=== PATIENT | female | born 1940 | race Caucasian/White ===

== ENCOUNTER → 2017-05-03 10:30 | Day surgery (SDC) | payer MEDICARE ==
--- NOTE | 2017-02-26 16:16 | HP ---
HISTORY AND PHYSICAL: DATE OF ADMISSION/SURGERY: 03/13/17 DATE OF OFFICE VISIT: 02/26/17 SURGEON: Kailey Elizondo MD * (DICTATED BY JORGE DE SANTIAGO) PROCEDURE: Left knee arthroscopy with partial medial meniscectomy. CHIEF COMPLAINT: Left knee pain. HISTORY OF PRESENT ILLNESS: Ms. Trivedi is a 77-year-old female with complaints of medial left knee pain and MRI shows a medial meniscus tear. She has elected to proceed with left knee arthroscopy with partial medial meniscectomy. The surgery is scheduled for 03/13/[address] Elizondo. PAST MEDICAL HISTORY: Anxiety, high cholesterol, history of hepatitis A. PAST SURGICAL HISTORY: Denies. CURRENT MEDICATIONS: 1. Atorvastatin calcium 10 mg daily. 2. Buspirone 5 mg twice daily. 3. Lorazepam 1 mg. 4. Sertraline 50 mg every day. 5. Vitamin D 2000 units daily. 6. Aspirin 81 mg daily. ALLERGIES: None. FAMILY HISTORY: Heart disease, diabetes, rheumatoid arthritis, hypertension, breast and bone cancer. SOCIAL HISTORY: She is a 77-year-old female. She lives with her . She does not smoke or use drugs. She uses occasional alcohol. REVIEW OF SYSTEMS: A complete 14-point review of systems was reviewed with the patient, was all negative or noncontributory. PHYSICAL EXAMINATION GENERAL: She is a well developed, well nourished, in no acute distress. She is alert and oriented x3, pleasant mood, and appropriate affect. VITAL SIGNS: She stands 5 feet 4 inches tall, weighs 180 pounds. Her blood pressure 128/68, her heart rate is 86. HEENT: Normocephalic, atraumatic. NECK: Supple. PULMONARY: Lungs are clear to auscultation bilaterally. CARDIO: Regular rate and rhythm. Strong S1 and S2. ABDOMEN: Soft, nontender, and nondistended. MUSCULOSKELETAL: Left lower extremity: The skin is intact. There are no open wounds or abrasions. She has some tenderness over the medial joint line. Positive Apley's. Positive Jean Claude's. No varus or valgus instability. Negative Marisol's. Overall, neurovascularly intact. NEUROLOGIC: Cranial nerves II through XII are intact. DIAGNOSTIC STUDIES: An MRI was reviewed from an outside facility, completed , which shows a medial meniscus tear, which appears to be a radial type. ASSESSMENT AND PLAN: Ms. Trivedi is a 77-year-old female with complaints of medial left knee pain secondary to a medial meniscus tear. She has failed conservative management and has elected to proceed with the left knee arthroscopy with partial medial meniscectomy, possible chondroplasty, possible synovectomy. A surgery is scheduled for 03/13/[address] Elizondo discussed the risks and benefits of the surgery at today's visit and all of her questions were answered. She will follow with Dr. Elizondo in 10 to 14 days after the surgery. JORGE DE SANTIAGO [id number]/[facility] #: [id number] MTDD
--- NOTE | 2017-04-23 12:59 | HP ---
HISTORY AND PHYSICAL: DATE OF OFFICE VISIT: 04/18/17. DATE OF SURGERY: 05/03/17. SURGEON: Kailey Elizondo MD * (DICTATED BY JORGE DE SANTIAGO) PROCEDURE: Left knee arthroscopy, partial medial meniscectomy, possible chondroplasty and possible synovectomy. CHIEF COMPLAINT: Left knee pain. HISTORY OF PRESENT ILLNESS: Ms. Trivedi is a 77-year-old female with complaints of left knee pain which is unrelieved with conservative treatment. An MRI shows a medial meniscus tear. She has elected to proceed with surgery. PAST MEDICAL HISTORY: High cholesterol and anxiety. PAST SURGICAL HISTORY: Denies. CURRENT MEDICATIONS: 1. Atorvastatin 10 mg daily. 2. Buspirone 5 mg twice daily. 3. Lorazepam 15 mg daily as needed. 4. Sertraline 50 mg daily. 5. Vitamin D. 6. Aspirin. ALLERGIES: None. FAMILY HISTORY: Cancer, heart disease. SOCIAL HISTORY: She is a 77-year-old female. She lives with her . She does not smoke or use drugs. She uses occasional alcohol. REVIEW OF SYSTEMS: A complete 14-point review of systems was reviewed with the patient, was all negative and noncontributory. PHYSICAL EXAMINATION GENERAL: She is a well-developed and well-nourished, in no acute distress. VITAL SIGNS: She stands 5 feet 4 inches tall, weighs 176 pounds. Her blood pressure is 128/64., heart rate 80. HEENT: Normocephalic, atraumatic. NECK: Supple. No palpable lymph nodes. PULMONARY: Lungs are clear to auscultation bilaterally. CARDIOVASCULAR: Regular rate and rhythm. Strong S1, S2. ABDOMEN: Soft, nontender, nondistended. NEUROLOGIC: She is alert, oriented x3. Cranial nerves II through XII are intact. MUSCULOSKELETAL: Left lower extremity, the skin is intact. There are no open wounds or abrasions. She has a positive Apley's. No varus or valgus instability. There is mild joint effusion and tenderness over the medial joint line. Lower extremities muscle groups strengths are intact at 5/5; 2+ dorsalis pedis pulses and intact sensation. ASSESSMENT AND PLAN: Ms. Trivedi is a 77-year-old female with complaints of left knee pain secondary to medial meniscus tear. She has elected to to proceed with left knee arthroscopy, partial medial meniscectomy, possible chondroplasty , and possible synovectomy. The surgery is scheduled for 05/03/[address] Elizondo discussed the risks and benefits of surgery of the surgery on today's visit and all of her questions were answered. She will follow up with Dr. Elizondo in 2 weeks after the surgery. JORGE DE SANTIAGO [id number]/[facility] #: [id number] MTDDonna
[~2017-05-03 10:30] MED LIST: Acetaminophen TAB* 325 MG PO PRN; Buffered Lidocaine 0.9% SYRIN* 5 ML/SYR SYRINGE INTRADERM ONE; Buffered Lidocaine 0.9% SYRIN* 5 ML/SYR SYRINGE ONE; Bupivacaine 0.5% SDV PF* 30 ML VIAL ONE; Dexamethasone IV* 4 MG/ML 1 ML (4 MG) ONE; DiMENhydriNATE IV* 50 MG/ML VIAL IV PUSH PRN; DiMENhydriNATE IV* 50 MG/ML VIAL ONE; EPINEPHRINE 1 MG/ML 1 ML VIAL ONE; Famotidine IV* 10 MG/ML 2 ML (20 mg) IV ONE; Famotidine IV* 10 MG/ML 2 ML (20 mg) ONE; HYDROmorphone INJ* 1 MG/ML CARPUJECT SYRINGE IV PRN; Ketorolac INJ* 30 MG/ML 1 ML VIAL ONE; Lidocaine 2% PF * 5 ML VIAL ONE; Midazolam* 1 MG/ML 2 ML VIAL (2 MG) ONE; Ondansetron INJ* 2 MG/ML VIAL ONE; Propofol* 10 MG/ML 20 ML BTL IV PUSH ONE; ceFAZolin 2 GM PREMIX (*) 2 GM/50 ML BAG IVPB ONE; fentaNYL* 50 MCG/ML 2 ML VIAL (100 MCG VIAL) ONE; methylPREDNISolone ACETATE 80* 80 MG/ML 1 ML VIAL ONE; oxyCODONE TAB* 5 MG TAB ONE; oxyCODONE TAB* 5 MG TAB PO PRN
[2017-05-03 13:19] VITALS: BP 128/76
--- NOTE | 2017-05-04 04:06 | OP ---
OPERATIVE REPORT: DATE OF OPERATION: 05/03/17 DATE OF : 44 ATTENDING SURGEON: Kailey Elizondo MD. DIABETES MANAGER: JORGE Phan. Jefferson Romano did help throughout the procedure with preparation of the leg, wound retraction, manipul ation of the knee and wound closure. ANESTHESIOLOGIST: Dr. Vidales. ANESTHESIA: General. PRE-OP DIAGNOSIS: Left knee medial meniscal tear. POST-OP DIAGNOSES: Left knee medial meniscal tear and osteoarthritis. OPERATIVE PROCEDURE: Left knee arthroscopy with partial medial meniscectomy and patellofemoral chond roplasty. ESTIMATED BLOOD LOSS: Less than 25 mL. COMPLICATIONS: None. SPECIMENS: None. BRIEF HISTORY/INDICATIONS: Ms. Trivedi is a 77-year-old female, who had a twisting injury to her left kn ee when she fell off a chair many months ago. She had mechanical symptoms medially and eventually an MRI confirmed a medial meniscal tear. Due to failure of conservative treatment, she elected to unde rgo left knee arthroscopy with partial medial meniscectomy. Informed consent was obtained from the p atmirza. She understood the risks of surgery included but not limited to bleeding, infection, damage to nearby structures, continued pain, need for further surgery, re-tear of the meniscus, progression of arthritis and arthritis pain, stroke, heart attack, blood clot, and . She wished to proceed. INTRAOPERATIVE FINDINGS: Intraoperatively, the patient was noted to have grade 3 Outerbridge cartila ge changes in the medial and patellofemoral compartments. She had deep fissure in the cartilage and patellofemoral compartment along the medial and lateral patella with cartilage flapping. She had an anteriorly displaced complex tear involving the posterior medial meniscus. This tear involved the white-red zone. DESCRIPTION OF PROCEDURE: Ms. Trivedi was identified in the preanesthesia unit. Her left lower extremit y was marked as correct operative side. Informed consent was signed and placed in the chart. The pa tient was taken to the operating room and placed under general anesthesia. Left lower extremity was prepped and draped in the usual sterile fashion. Preop time out was made to correctly identify the p atmirza's side and site. Appropriate perioperative antibiotics were given within 1 hour of incision. A 1.5 cm anterolateral portal incision was made with a 15 blade and carried down through the capsule. Trocar was introduced into the knee. As soon as light and water sources were turned on, there was immediate visualization of the suprapatellar pouch. A tour of the knee joint was performed. Suprapa tellar pouch had no obvious abnormality. Patellofemoral compartment showed cartilage flapping and fi ssuring. These were grade 3 and 4 Outerbridge cartilage changes. Medial gutter showed no plica or l oose body. Medial compartment showed some grade 3 Outerbridge cartilage changes with fissuring of th e cartilage along the medial femoral condyle. There was a complex tear of the posterior medial menis cus, which was displaced anteriorly. This was both radial and linear in its makeup. ACL and PCL wer e intact. The knee was placed in a [id number] position. Lateral compartment cartilage had no ob vious degeneration. There was no obvious lateral meniscal tear. Lateral gutter had no obvious abnor mality. Under direct visualization, a medial portal incision was made. Probe was introduced into the joint. No additional findings were noted. Radiofrequency ablation wand and shaver were used to remove some inflammatory tissue along the anterior joint line to improve visualization. Next, the straight bite r and shaver were used to perform partial medial meniscectomy. A smooth border of the medial meniscu s was obtained in the white-red zone. Radiofrequency ablation wand was then used to further smooth t he edges of the medial meniscus. Probe was used to ensure there were no additional tears or displace d meniscal fragments. Radiofrequency ablation wand was then used to smooth any cartilage flapping al herman the patellofemoral compartment mainly involving the medial patellar facet. The knee was copiousl y irrigated with sterile saline. All instruments were removed. Incisions were closed using interrupt ed 3-0 nylon suture. Intraarticular injection of 80 mg Depo-Medrol and 6 cc of 0.25% Marcaine was pl aced in the knee joint. The patient's incisions were covered with Xeroform, 4x4s, and Webril. Kelechi w rap and cold pack were placed over this. The patient's anesthesia was reversed without difficulty. She was taken to the PACU in stable condition. Intended weightbearing will be weightbearing as carol ated. Intended DVT prophylaxis will be aspirin. She will follow up in 2 weeks' time. [id number]/[facility] #: [id number]
== END | disposition home or self-care (01) ==
LOC: OR 10:30
PROVIDERS: ATTEND Orthopaedic Surgery Adult Reconstructive Orthopaedic Surgery
DX: S83.242A Other tear of medial meniscus, current injury, left knee, initial encounter (principal); M17.12 Unilateral primary osteoarthritis, left knee; W08.XXXA Fall from other furniture, initial encounter; Y92.9 Unspecified place or not applicable; E78.00 Pure hypercholesterolemia, unspecified; F41.9 Anxiety disorder, unspecified
CPT/HCPCS: A9270-GY; J0690; J1040; J1100; J1240; J1885; J2250; J2405; J2704; J3010

== ENCOUNTER 2017-07-22 10:39 | Emergency (ER) | payer MEDICARE ==
[2017-07-22] MEDS ORDERED: Oxymetazoline 0.05% NASAL SPR* 15 ML BTL BOTH NARES ONE (11:21)
[2017-07-22 12:14] LABS: ABS Basophils 0.1 10^3/ul (0-0.2); ABS Eosinophils 0.1 10^3/ul (0-0.6); ABS Lymphocytes 1.5 10^3/ul (1.0-4.8); ABS Monocytes 0.7 10^3/ul (0-0.8); ABS Neutrophils 5.2 10^3/ul (1.5-7.7); ABS Nucleated RBC 0 10^3/ul; Eosinophil % 1.9 % (0-6); Hematocrit 40 % (35-47); Hemoglobin 13.4 g/dl (12.0-16.0); Lymphocyte % 19.9 % (25-47); Mean Corpuscular HGB Conc 33 g/dl (31-36); Mean Corpuscular Hemoglobin 30 pg (27-31); Mean Corpuscular Volume 91 fL (80-97); Mean Platelet Volume 8 um3 (7.4-10.4); Nucleated Red Blood Cells % 0; Platelet Count 241 10^3/ul (150-450); Red Blood Count 4.43 10^6/ul (4.0-5.4); Red Cell Distribution Width 15 % (10.5-15); White Blood Count 7.6 10^3/ul (3.5-10.8)
[2017-07-22 12:47] LABS: INR 0.85 (0.77-1.02)
--- NOTE | 2017-07-22 13:32 | ED ---
Throat Pain/Nasal Congestion - HPI Summary HPI Summary: Pt here w/ epistaxis in mornings weekly for past 4 weeks. Today, lasted longer than usual despite holding pressure to nose - 40 mins - going into back of throat - multiple large clots - concerned. Typically lasts 20 mins. Initial trauma w/ picking on Rt side - this has been main side of bleeding. No previous h/o epistaxis. No known bleeding or clotting d/o's and no other areas of bleeding or bruising. Takes Asa 81mg daily Snores in certain positions (back and when neck is flexed forward) Heat 70'sF in home during the day - no humidification. No use of diuretics -2 c coffee in AM and iced coffee in afternoon - History of Current Complaint Chief Complaint: EDEpistaxis Time Seen by Provider: 07/22/17 11:20 Hx Obtained From: Patient, Family/Counter Pocket Trimmer - daughter, - Allergies/Home Medications Allergies/Adverse Reactions: Allergies Allergy/AdvReac Type Severity Reaction Status Date / Time clams Allergy n/v with Uncoded 05/03/17 09:17 formerly [facility], [facility] PMH/Surg Hx/FS Hx/Imm Hx Previously Healthy: Yes Endocrine/Hematology History: Denies: Hx Anticoagulant Therapy, Hx Blood Disorders, Hx Anemia, Hx Unexplained Bleeding, Hx Coagulopothy Cardiovascular History: Denies: Hx Pacemaker/ICD, Other Cardiovascular Problems/Disorders Respiratory History: Denies: Other Respiratory Problems/Disorders GI History: Denies: Other GI Disorders Musculoskeletal History: Reports: Hx Arthritis - BACK AND NECK Denies: Hx Osteoporosis, Other Musculoskeletal History Sensory History: Reports: Hx Cataracts - yuri, Hx Contacts or Glasses - GLASSES Denies: Hx Hearing Aid Opthamlomology History: Reports: Hx Cataracts - yuri, Hx Contacts or Glasses - GLASSES Neurological History: Reports: Hx Migraine - TREATS WITH VANQUISH Denies: Other Neuro Impairments/Disorders Psychiatric History: Reports: Hx Anxiety - ON MEDICATION FOR - Surgical History Surgery Procedure, Year, and Place: COLONOSCOPY. 1ST CHILDBIRTH- ANESTHESIA Hx Anesthesia Reactions: No Infectious Disease History: No Infectious Disease History: Reports: Hx Hepatitis - "A"-20 +YEARS AGO - no residual effects Denies: Traveled Outside the [place] in Last 30 Days - Family History Known Family History: Positive: None - Social History Occupation: Retired Lives: With Family Alcohol Use: Weekly Alcohol Amount: 1-2 GLASSES OF WINE WEEKLY Hx Substance Use: No Substance Use Type: Reports: None Hx Tobacco Use: No Smoking Status (MU): Never Smoked Tobacco Review of Systems Constitutional: Negative Negative: Fever, Chills, Fatigue Eyes: Negative Negative: Drainage, Erythema Positive: Epistaxis. Negative: Dental Pain, Sore Throat, Ear Ache, Nasal Discharge Cardiovascular: Negative Respiratory: Negative Gastrointestinal: Negative Positive: no symptoms reported Musculoskeletal: Negative Negative: Bruising Neurological: Negative Negative: Headache Psychological: Normal - concerned but calm and cooperative All Other Systems Reviewed And Are Negative: Yes Physical Exam Triage Information Reviewed: Yes Vital Signs On Initial Exam: Initial Vitals Temp Pulse Resp BP Pulse Ox 98.0 F 94 18 128/69 100 07/22/17 10:40 07/22/17 10:40 07/22/17 10:40 07/22/17 10:40 07/22/17 10:40 Vital Signs Reviewed: Yes Appearance: Positive: Well-Appearing, No Pain Distress, Well-Nourished Skin: Positive: Warm, Skin Color Reflects Adequate Perfusion, Dry Head/Face: Positive: Normal Head/Face Inspection Eyes: Positive: Normal, EOMI, DANIS, Conjunctiva Clear. Negative: Conjunctiva Inflammed, Discharge ENT: Positive: Hearing grossly normal, Pharynx normal - no blood in pharynx, TMs normal - no hemotympanum. Negative: Nasal congestion, Nasal drainage - dried blood about the external Lt nare - internal mucosa pink and moist Dental: Negative: Abscess @ Neck: Positive: Supple, Nontender Respiratory/Lung Sounds: Positive: Clear to Auscultation, Breath Sounds Present. Negative: Stridor Cardiovascular: Positive: Normal Musculoskeletal: Positive: Normal, Strength/ROM Intact Neurological: Positive: Normal, Sensory/Motor Intact, Alert, Oriented to Person Place, Time, CN Intact II-III Psychiatric: Positive: Normal Procedures - Procedure Summary Procedure Summary: Visualized nasal passages w/ light and nasal speculum. Mucosa pink and moist without acute ulceration/lesion/scab observed - cannot see further into posterior aspect of nasal passages d/t limited equipment. Pt tolerated well - no afrin was necessary as pt does not have active bleeding during her time here. Diagnostics - Vital Signs Vital Signs Temp Pulse Resp BP Pulse Ox 07/22/17 10:40 98.0 F 94 18 128/69 100 - Laboratory Lab Results: Lab Results 07/22/17 07/22/17 07/22/17 Range/Units 12:00 12:00 12:00 WBC 7.6 (3.5-10.8) 10^3/ul RBC 4.43 (4.0-5.4) 10^6/ul Hgb 13.4 (12.0-16.0) g/dl Hct 40 (35-47) % MCV 91 (80-97) fL MCH 30 (27-31) pg MCHC 33 (31-36) g/dl RDW 15 (10.5-15) % Plt Count 241 (150-450) 10^3/ul MPV 8 (7.4-10.4) um3 Neut % (Auto) 67.9 (38-83) % Lymph % (Auto) 19.9 L (25-47) % Hampton % (Auto) 9.2 H (0-7) % Eos % (Auto) 1.9 (0-6) % Baso % (Auto) 1.1 (0-2) % Absolute Neuts (auto) 5.2 (1.5-7.7) 10^3/ul Absolute Lymphs (auto) 1.5 (1.0-4.8) 10^3/ul Absolute Monos (auto) 0.7 (0-0.8) 10^3/ul Absolute Eos (auto) 0.1 (0-0.6) 10^3/ul Absolute Basos (auto) 0.1 (0-0.2) 10^3/ul Absolute Nucleated RBC 0 10^3/ul Nucleated RBC % 0 INR (Anticoag Therapy) (0.77-1.02) APTT (26.0-36.3) seconds Sodium 136 (133-145) mmol/L Potassium 4.5 (3.5-5.0) mmol/L Chloride 106 (101-111) mmol/L Carbon Dioxide 26 (22-32) mmol/L Anion Gap 4 (2-11) mmol/L BUN 28 H (6-24) mg/dL Creatinine 0.72 (0.51-0.95) mg/dL Est GFR ( Amer) 101.6 (>60) Est GFR (Non-Af Amer) 79.0 (>60) BUN/Creatinine Ratio 38.9 H (8-20) Glucose 100 (70-100) mg/dL Lactic Acid 1.4 (0.5-2.0) mmol/L Calcium 9.4 (8.6-10.3) mg/dL Total Bilirubin 0.50 (0.2-1.0) mg/dL AST 14 (13-39) U/L ALT 13 (7-52) U/L Alkaline Phosphatase 74 (34-104) U/L C-Reactive Protein 5.36 H (< 5.00) mg/L Total Protein 6.8 (6.4-8.9) g/dL Albumin 3.7 (3.2-5.2) g/dL Globulin 3.1 (2-4) g/dL Albumin/Globulin Ratio 1.2 (1-3) /03/31 Range/Units 12:00 WBC (3.5-10.8) 10^3/ul RBC (4.0-5.4) 10^6/ul Hgb (12.0-16.0) g/dl Hct (35-47) % MCV (80-97) fL MCH (27-31) pg MCHC (31-36) g/dl RDW (10.5-15) % Plt Count (150-450) 10^3/ul MPV (7.4-10.4) um3 Neut % (Auto) (38-83) % Lymph % (Auto) (25-47) % Hampton % (Auto) (0-7) % Eos % (Auto) (0-6) % Baso % (Auto) (0-2) % Absolute Neuts (auto) (1.5-7.7) 10^3/ul Absolute Lymphs (auto) (1.0-4.8) 10^3/ul Absolute Monos (auto) (0-0.8) 10^3/ul Absolute Eos (auto) (0-0.6) 10^3/ul Absolute Basos (auto) (0-0.2) 10^3/ul Absolute Nucleated RBC 10^3/ul Nucleated RBC % INR (Anticoag Therapy) 0.85 (0.77-1.02) APTT 29.5 (26.0-36.3) seconds Sodium (133-145) mmol/L Potassium (3.5-5.0) mmol/L Chloride (101-111) mmol/L Carbon Dioxide (22-32) mmol/L Anion Gap (2-11) mmol/L BUN (6-24) mg/dL Creatinine (0.51-0.95) mg/dL Est GFR ( Amer) (>60) Est GFR (Non-Af Amer) (>60) BUN/Creatinine Ratio (8-20) Glucose (70-100) mg/dL Lactic Acid (0.5-2.0) mmol/L Calcium (8.6-10.3) mg/dL Total Bilirubin (0.2-1.0) mg/dL AST (13-39) U/L ALT (7-52) U/L Alkaline Phosphatase (34-104) U/L C-Reactive Protein (< 5.00) mg/L Total Protein (6.4-8.9) g/dL Albumin (3.2-5.2) g/dL Globulin (2-4) g/dL Albumin/Globulin Ratio (1-3) Result Diagrams: 07/22/17 12:00 07/22/17 12:00 Lab Statement: Any lab studies that have been ordered have been reviewed, and results considered in the medical decision making process. EENT Course/Dx - Course Course Of Treatment: Suspect posterior epistaxis - no obvious source located today. Advised on home care should epistaxis return - education about afrin as needed only - pt and family agree w/ plan and will f/u w/ ENT this week. Will return if danger s/sx present. Labs are w/o acute findings for contribution to issue today. - Diagnoses Provider Diagnoses: Epistaxis, recurrent Discharge - Discharge Plan Condition: Stable Disposition: HOME Patient Education Materials: Nosebleed (ED) Referrals: Jose Guzman MD [Primary Care Provider] - Willi York MD [Medical Doctor] - Additional Instructions: Afrin *Use if bleeding starts and is not controlled with 20minutes of steady clamping 2-3 sprays per nostril every 12 hours as needed for bloody nose Do not use for more than 3 days consecutively. If bloody nose returns and is not controlled with methods above, return to ED Otherwise, follow-up with ENT this week - call tomorrow to schedule an appointment
[2017-07-22 14:23] VITALS: BP 126/72
== END 2017-07-22 13:48 | disposition home or self-care (01) ==
LOC: ED 10:39
DX: R04.0 Epistaxis (principal)
CPT/HCPCS: 36415; 80053; 83605; 85025; 85610; 85730; 86140; 99282; A9270-GY

== ENCOUNTER 2018-07-24 07:52 | Day surgery (SDC) | payer MEDICARE ==
[~2018-07-24 07:52] MED LIST changes: -Buffered Lidocaine 0.9% SYRIN* 5 ML/SYR SYRINGE INTRADERM ONE; -Buffered Lidocaine 0.9% SYRIN* 5 ML/SYR SYRINGE ONE; +Buffered Lidocaine 1% SYRIN* 1 ML/SYRINGE INTRADERM ONE; -Bupivacaine 0.5% SDV PF* 30 ML VIAL ONE; -Dexamethasone IV* 4 MG/ML 1 ML (4 MG) ONE; -DiMENhydriNATE IV* 50 MG/ML VIAL IV PUSH PRN; -DiMENhydriNATE IV* 50 MG/ML VIAL ONE; -EPINEPHRINE 1 MG/ML 1 ML VIAL ONE; -Famotidine IV* 10 MG/ML 2 ML (20 mg) IV ONE; -Famotidine IV* 10 MG/ML 2 ML (20 mg) ONE; -HYDROmorphone INJ* 1 MG/ML CARPUJECT SYRINGE IV PRN; -Ketorolac INJ* 30 MG/ML 1 ML VIAL ONE; -Lidocaine 2% PF * 5 ML VIAL ONE; -Midazolam* 1 MG/ML 2 ML VIAL (2 MG) ONE; -Ondansetron INJ* 2 MG/ML VIAL ONE; -Propofol* 10 MG/ML 20 ML BTL IV PUSH ONE; -ceFAZolin 2 GM PREMIX (*) 2 GM/50 ML BAG IVPB ONE; -fentaNYL* 50 MCG/ML 2 ML VIAL (100 MCG VIAL) ONE; -methylPREDNISolone ACETATE 80* 80 MG/ML 1 ML VIAL ONE; -oxyCODONE TAB* 5 MG TAB ONE; -oxyCODONE TAB* 5 MG TAB PO PRN
[2018-07-24] MEDS ORDERED: Midazolam* 1 MG/ML 2 ML VIAL (2 MG) ONE ×2 (09:59→10:13)
--- NOTE | 2018-07-24 11:06 | OP ---
OPERATIVE NOTE: DATE OF OPERATION: 07/24/18 DATE OF : 44 SURGEON: Willi Sanchez MD PREOPERATIVE DIAGNOSIS: Cataract right eye. POSTOPERATIVE DIAGNOSIS: Cataract right eye. OPERATIVE PROCEDURE: Extracapsular cataract extraction with intraocular lens implant right eye. PROCEDURE: The patient was brought to the operating room after being given 1/2% Alcaine with epineph rine drops in the preoperative area. The eye was prepped and draped in the usual sterile fashion. S terile drape and eyelid speculum were placed. Again, topical 1/2% Alcaine with epinephrine was given . A paracentesis incision was made at the 9 o'clock position with the No.75 blade. Clear cornea inc ision 2.2 x 2.2-mm was created at the 12 o'clock position starting at the anterior limbus using the 2 .2-mm keratome. The anterior chamber was irrigated with 0.4 mL of 1% non-preservative intracameral l idocaine and filled with DisCoVisc. A capsulorrhexis was completed using the cystotome and the Utrat a forceps. Hydrodissection was performed with balanced salt solution. The lens nucleus was removed w ith the Phacoemulsification handpiece without incident. Cortex was removed with the irrigation-aspir ation handpiece. The capsular bag was re-inflated using DisCoVisc and an SN60WF 18.5 implant was ins erted with the shooter. The irrigation-aspiration handpiece was used to remove all residual DisCoVis c. The eye was refilled with balanced salt solution and the wound checked and found to be watertight . Topical Maxitrol drops were given. [id number]/[facility] #: [id number]
[2018-07-24 11:19] VITALS: BP 129/72
[2018-07-24] MEDS ORDERED: Lidocaine 1%* 5 ML VIAL ONE (12:18)
[2018-07-24] MEDS ORDERED: Phenylephrine 2.5% OPTH.SOL* 2 ML BTL ONE (12:18)
[2018-07-24] MEDS ORDERED: Povidone Iodine 5% OPTH* 30 ML BTL ONE (12:18)
[2018-07-24] MEDS ORDERED: Neomycin/Polymy/Dex OPTH.SUSP* MAXITROL 0.1% 5 ML ONE (12:18)
[2018-07-24] MEDS ORDERED: Lidocaine 2% EPI 1:200000 MPF*10-20 ML VIAL ONE (12:18)
[2018-07-24] MEDS ORDERED: acetaZOLAMIDE TAB* 250 MG ONE (12:18)
[2018-07-24] MEDS ORDERED: Ketorolac 0.5% OPHTH (NF) 0.5 % 5 ML BTL ONE (12:18)
[2018-07-24] MEDS ORDERED: Cyclopentolate 1% OPTH.SOL* 2 ML BTL ONE (12:18)
[2018-07-24] MEDS ORDERED: Proparacaine 0.5% OPHTH.SOL* 15 ML BTL ONE (12:18)
== END 2018-07-24 10:35 | disposition home or self-care (01) ==
LOC: OREAST 07:52
PROVIDERS: ATTEND Specialist
DX: H25.811 Combined forms of age-related cataract, right eye (principal); H43.813 Vitreous degeneration, bilateral; G43.109 Migraine with aura, not intractable, without status migrainosus; I10 Essential (primary) hypertension; E78.5 Hyperlipidemia, unspecified; M19.90 Unspecified osteoarthritis, unspecified site
CPT/HCPCS: A9270-GY; J2250; V2632

== ENCOUNTER 2018-07-31 07:20 | Day surgery (SDC) | payer MEDICARE ==
[2018-07-31] MEDS ORDERED: fentaNYL* 50 MCG/ML 2 ML VIAL (100 MCG VIAL) ONE (09:08)
[2018-07-31] MEDS ORDERED: Midazolam* 1 MG/ML 2 ML VIAL (2 MG) ONE ×2 (09:08→10:03)
[2018-07-31] MEDS ORDERED: acetaZOLAMIDE TAB* 250 MG ONE (09:26)
[2018-07-31] MEDS ORDERED: Povidone Iodine 5% OPTH* 30 ML BTL ONE (09:26)
[2018-07-31] MEDS ORDERED: Cyclopentolate 1% OPTH.SOL* 2 ML BTL ONE (09:26)
[2018-07-31] MEDS ORDERED: Ketorolac 0.5% OPHTH (NF) 0.5 % 5 ML BTL ONE (09:26)
[2018-07-31] MEDS ORDERED: Proparacaine 0.5% OPHTH.SOL* 15 ML BTL ONE (09:26)
[2018-07-31] MEDS ORDERED: Neomycin/Polymy/Dex OPTH.SUSP* MAXITROL 0.1% 5 ML ONE (09:26)
[2018-07-31] MEDS ORDERED: Phenylephrine OPHTH SOL 2.5%* 2 ML ONE (09:26)
[2018-07-31] MEDS ORDERED: Lidocaine 2% EPI 1:200000 MPF*10-20 ML VIAL ONE (09:26)
[2018-07-31] MEDS ORDERED: Lidocaine 1%* 5 ML VIAL ONE (09:26)
[2018-07-31 10:30] VITALS: BP 136/61
--- NOTE | 2018-07-31 10:41 | OP ---
OPERATIVE NOTE: DATE OF OPERATION: 07/31/18 DATE OF : 44 SURGEON: Willi Sanchez MD. PREOPERATIVE DIAGNOSIS: Cataract, left eye. POSTOPERATIVE DIAGNOSIS: Cataract, left eye. OPERATIVE PROCEDURE: Extracapsular cataract extraction with intraocular lens implant, left eye. DESCRIPTION OF PROCEDURE: The patient was brought to the operating room after being given 1/2% Alcai ne with epinephrine drops in the preoperative area. The eye was prepped and draped in the usual ster ile fashion. Sterile drape and eyelid speculum were placed. Again, topical 1/2% Alcaine with epinep hrine was given. A paracentesis incision was made at the 3 o'clock position with the No.75 blade. Cl ear cornea incision 2.2 x 2.2-mm was created at the 6 o'clock position starting at the anterior limbu s using the 2.2-mm keratome. The anterior chamber was irrigated with 0.4 mL of 1% non-preservative i ntracameral lidocaine and filled with DisCoVisc. A capsulorrhexis was completed using the cystotome and the Utrata forceps. Hydrodissection was performed with balanced salt solution. The lens nucleus was removed with the Phacoemulsification handpiece without incident. Cortex was removed with the irr igation-aspiration handpiece. The capsular bag was re-inflated using DisCoVisc and an SN60WF 18.5 im plant was inserted with the shooter. The irrigation-aspiration handpiece was used to remove all resi dual DisCoVisc. The eye was refilled with balanced salt solution and the wound checked and found to be watertight. Topical Maxitrol drops were given. [id number]/[facility] #: [id number]
== END 2018-07-31 10:38 | disposition home or self-care (01) ==
LOC: OREAST 07:20
PROVIDERS: ATTEND Specialist
DX: H25.812 Combined forms of age-related cataract, left eye (principal); H43.813 Vitreous degeneration, bilateral; G43.109 Migraine with aura, not intractable, without status migrainosus; I10 Essential (primary) hypertension; E78.5 Hyperlipidemia, unspecified; M19.90 Unspecified osteoarthritis, unspecified site; F41.9 Anxiety disorder, unspecified
CPT/HCPCS: A9270-GY; J2250; J3010; V2632

== ENCOUNTER 2018-10-03 04:43 | Emergency (ER) | payer MEDICARE ==
--- OUTSIDE RECORDS SUMMARY | 2018-10-03 04:49 | XMS REPORT | Continuity of Care Document ---
:1940 External Reference #:[id number] Author Name Danny Luz Care Team Providers Name Role Phone Jose Guzman MD Primary Care Physician Unavailable Payers Date Identification Numbers Payment Provider Subscriber Policy Number: [id number] Medicare Arabella Musa PayID: [id number] [address] [place] [address] Policy Number: [id number] [facility] Arabella Musa PayID: [id number] [address] [place] [address] Advance Directives Description No Information Available Problems Active Problems Provider Date Localized, primary osteoarthritis Kailey Elizondo M.D. Onset: 01/29/2017 Family History Date Family Member(s) Observation Comments General Diabetes General Heart Disease General Hypertension General Cancer General Rheumatoid Arthritis Father Heart Disease Mother Breast Cancer First Sister Arthritis First Sister Hypercholesterolemia Social History Type Date Description Comments Sex Unknown Lives With Spouse Occupation Retired Tobacco Use Start: Unknown Never Smoked Cigarettes Smoking Status Reviewed: 09/05/18 Never Smoked Cigarettes ETOH Use Negative For Occasionally consumes alcohol Tobacco Use Start: Unknown Patient has never smoked Exercise Type/Frequency Exercises sporadically Exercise Type/Frequency Does not exercise Allergies, Adverse Reactions, Alerts Description No Known Drug Allergies Medications Active Medications SIG Qnty Indications Ordering Date Provider Clotrimazole/Betamet apply to effected 30gm L29.2 Del Albrecht, 2018 hasone Dipropionate area of vulva (external only) 1-0.05% Cream bid until irritation resolves Clindamycin one applicator 160gram Del Albrecht, 06/13/2018 Phosphate vaginally every MD 2% Cream night at bedtime x 4 weeks Aspirin 1 by mouth every 14tabs Kailey Elizondo, 05/03/2017 325mg Tablets day for 2 weeks M.D. Atorvastatin Calcium 1 by mouth every Unknown day 10mg Tablets Buspirone HCL by mouth twice a Unknown 5mg day Tablets Lorazepam Unknown 15mg Sertraline HCL 1 by mouth every Unknown 50mg day Tablets Vitamin D 1 by mouth every Unknown 2000Unit day Capsules Biotin 1 tablet every Unknown 300mcg Tablets other day Vitamin B12 1 by mouth every Unknown 100mcg day Tablets History Medications Meloxicam take 1 tab by 14tabs M25.562 Kailey Elizondo, 05/30/2017 - 15mg mouth with food M.D. 06/14/2017 Tablets once a day Oxycodone-Acetamino 1 tabs by mouth 45tabs Kailey Elizondo, 05/03/2017 - phen every 4-6 hours M.D. 06/14/2017 5-325mg as needed for Tablets pain Aspirin 1 by mouth every Unknown - day 05/03/2017 Immunizations Description No Information Available Vital Signs Date Vital Result Comment 09/05/2018 1:53pm Height 63.5 inches 5'3.50" Weight 182.00 lb Heart Rate 95 /min BP Systolic 126 mmHg BP Diastolic 67 mmHg O2 % BldC Oximetry 97 % BMI (Body Mass Index) 31.7 kg/m2 06/13/2018 11:34am Height 63.5 inches 5'3.50" Weight 181.00 lb Heart Rate 85 /min BP Systolic 137 mmHg BP Diastolic 64 mmHg O2 % BldC Oximetry 95 % BMI (Body Mass Index) 31.6 kg/m2 05/28/2018 1:07pm Height 63.5 inches 5'3.50" Weight 183.12 lb Heart Rate 80 /min BP Systolic 117 mmHg BP Diastolic 66 mmHg O2 % BldC Oximetry 97 % BMI (Body Mass Index) 31.9 kg/m2 Last Menstrual Period [id number] 06/15/2017 10:44am Height 64.5 inches 5'4.50" Weight 168.00 lb BP Systolic 114 mmHg BP Diastolic 68 mmHg Body Temperature 97.5 F BMI (Body Mass Index) 28.4 kg/m2 05/30/2017 10:23am Height 64.5 inches 5'4.50" Weight 176.00 lb per pt Heart Rate 70 /min reg BP Systolic Sitting 130 mmHg Lue BP Diastolic Sitting 76 mmHg Lue Respiratory Rate 16 /min Pain Level 7 left knee BMI (Body Mass Index) 29.7 kg/m2 05/16/2017 12:29pm Height 64.5 inches 5'4.50" Weight 176.00 lb BP Systolic 130 mmHg BP Diastolic 76 mmHg Body Temperature 98.4 F BMI (Body Mass Index) 29.7 kg/m2 05/10/2017 1:12pm Height 64.5 inches 5'4.50" Weight 176.00 lb Heart Rate 84 /min BP Systolic Sitting 148 mmHg BP Diastolic Sitting 70 mmHg Body Temperature 98.2 F Pain Level 4 BMI (Body Mass Index) 29.7 kg/m2 04/18/2017 9:54am Height 64.5 inches 5'4.50" Weight 176.00 lb Heart Rate 80 /min BP Systolic 128 mmHg BP Diastolic 64 mmHg BMI (Body Mass Index) 29.7 kg/m2 02/26/2017 10:27am Height 64.5 inches 5'4.50" Weight 180.00 lb Heart Rate 86 /min BP Systolic 128 mmHg BP Diastolic 68 mmHg Respiratory Rate 17 /min Body Temperature 97.2 F Pain Level 7 BMI (Body Mass Index) 30.4 kg/m2 01/29/2017 2:23pm Height 64.5 inches 5'4.50" Weight 180.00 lb Heart Rate 74 /min BP Systolic 112 mmHg BP Diastolic 61 mmHg Body Temperature 98.1 F Pain Level 7 BMI (Body Mass Index) 30.4 kg/m2 Results Test Date Facility Test Result H/L Range Note Laboratory test 06/13/2018 [facility] Culture Genital & SEE RESULT 1, [address] [place] [address] [phone] Laboratory test 06/13/2018 [facility] Gardnerella/Yeast SEE RESULT 3, [address] : [place] [address] [phone] 1 [id number] 2 SEE RESULT BELOW Name: ARABELLA MUSA : [address]: Del Albrecht MD Acct: [id number] Unit: [id number] AGE: 78 Location: [facility] Re06/13/18 SEX: F Status: REG REF SPEC: [id number] LIZET: 06/13/18-[address] [facility] DR: Del Albrecht MD REQ: [id number] RECD: 06/13/18 STATUS: COMP _ SOURCE: VAGINAL SPDESC: ORDERED: Genital Culture COMMENTS: [id number] Procedure Result Reported Site Genital Culture Final 06/15/18- 1358 ML Organism 1 NORMAL PATRICIA Quantity 3+ Routine genital cultures do not include selective agar for Neisseria gonorrhoeae. Molecular testing offers better test sensitivity and therefore is the preferred test methodology for identifying this organism. * - Main Lab . END OF REPORT DEPARTMENT OF PATHOLOGY, [address] [place] [address] Jatin Khan M.D. Director [facility] # [id number] SEE RESULT BELOW Name: LENCHOCARRIEARABELLA H : [address]: Del Albrecht MD Acct: [id number] Unit: [id number] AGE: 78 Location: [facility] Re06/13/18 SEX: F Status: REG REF SPEC: [id number] LIZET: 06/13/18-[address]: Del Albrecht MD REQ: [id number] RECD: 06/13/184316 STATUS: COMP _ SOURCE: VAGINAL SPDESC: ORDERED: Keisha,Yeast DNA, Trich DNA COMMENTS: [id number] QUERIES: Would you like to order Trichomonas Vaginalis testing? Yes Procedure Result Reported Site Gardnerella/Yeast: Vaginal DNA Final 06/14/181410 ML Organism 1 POSITIVE GARDNERELLA Organism 2 Negative Kimberli The presence of G. vaginalis, although suggestive, is not diagnostic for bacterial vaginosis. Results should be interpreted in conjuction with other clinical and laboratory data available. Women with vaginal discharge should be evaluated for risk factors of cervicitis and pelvic inflammatory disease, toxic shock syndrome (S.aureus), and if present, evaluated for organisms not included in this assay such as N. gonorrhoeae, C. trachomatis, Mobiluncus, Mycoplasma and/or Prevotella. Mixed infections may occur. The performance of this test on patient specimens collected during or immediately after antimicrobial therapy is unknown. The presence or absence of Kimberli species, or G. vaginalis cannot be used as a test for therapeutic success or failure. Trichomonas: Vaginal DNA Probe Final 06/14/181410 ML Organism 1 Negative Trichomonas CONTINUED ON NEXT PAGE DEPARTMENT OF PATHOLOGY, [address] [place] [address] Jatin Khan M.D. Director [facility] # [id number] Patient: ARABELLA MUSA [id number] (Continued) Specimen: [id number] Collected: 06/13/18 Received: 06/13/18-1439 (Continued) Procedure Result Reported Site Trichomonas: Vaginal DNA Probe Final (continued) 06/14/18 141 The presence or absence of T. vaginalis cannot be used as a test for therapeutic success or failure. * ML - Main Lab . END OF REPORT DEPARTMENT OF PATHOLOGY, [address] [place] [address] Jatin Khan M.D. Director [facility] # [id number] Procedures Date Code Description Status 05/03/2017 80383 Arthroscopy,Knee,Meniscectomy Medial Or Lateral Completed 05/03/2017 74707 Arthroscopy,Knee,Meniscectomy Medial Or Lateral Completed Encounters Type Date Location Provider Dx Diagnosis Office Visit 06/13/2018 [facility] Del Albrecht MD L29.2 Pruritus vulvae 11:30a [facility] N89.8 Other specified noninflammatory disorders of vagina Office Visit 05/28/2018 1:00p [facility] Del Albrecht, N81.11 Cystocele, [facility] midline Office Visit 01/29/2017 2:00p Orthopedic Kailey Mikhail, M25.562 Pain in left Services Of M.D. knee [facility] M25.462 Effusion, left knee M17.12 Unilateral primary osteoarthritis, left knee S83.242D Oth tear of medial meniscus, current injury, left knee, subs Plan of Treatment Future Appointment(s):12/05/2018 9:30 am - Del Albrecht MD at [facility]09/05/2018 - Del Albrecht MDN81.11 Cystocele, midlineFollow up:3 months pessary vurzkfujqofS06.2 Pruritus vulvaeNew Medication:Clotrimazole/ Betamethasone Dipropionate 1-0.05 % - apply to effected area of vulva (external only) bid until irritation resolves
--- NOTE | 2018-10-03 05:12 | ED ---
Headache - HPI Summary HPI Summary: Patient is a 78 y/o F presenting to ED with complaints of MAGDALENO. She states that she is "susceptible" to HAs but claims this is the worst MAGDALENO that she has experienced. MAGDALENO onset yesterday, 10/02/18, and had been "manageable" and intermittent throughout the day. Before going to bed, the patient took Execdrin PM and managed to sleep. This morning, at 0400, patient woke with severe MAGDALENO. She took two pills of Vanquish but experienced no relief in Sx. Nausea, photophobia are endorsed. Visual changes, chest pain, SOB, recent colds, abdominal pain, cough, fever and vomiting are denied. On triage, pain is rated 10/10, nothing is noted to aggravate/alleviate Sx. Home medications and allergies are reviewed. - History Of Current Complaint Chief Complaint: EDHeadache Stated Complaint: HEADACHE PER PT Time Seen by Provider: 10/03/18 05:06 Hx Obtained From: Patient Onset/Duration: Started days ago - yesterday, Still Present, Worse Since - 0400 today Initially Headache Was: Moderate Currently Pain Is: Current Pain Scale(0-10)= - 10/10, Severe Timing: Constant, Days - onset yesterday Aggravating Factor: Position Change Allevating Factors: Nothing Associated Signs And Symptoms: Nausea, Other (Noted In Comments) - Nausea, photophobia are endorsed. Visual changes, fever, chest pain, SOB, recent colds, abdominal pain, cough and vomiting are denied - Allergies/Home Medications Allergies/Adverse Reactions: Allergies Allergy/AdvReac Type Severity Reaction Status Date / Time clams Allergy n/v with Uncoded 07/31/18 07:45 eloy PMH/Surg Hx/FS Hx/Imm Hx Endocrine/Hematology History: Denies: Hx Anticoagulant Therapy, Hx Blood Disorders, Hx Anemia, Hx Unexplained Bleeding Cardiovascular History: Denies: Hx Pacemaker/ICD, Other Cardiovascular Problems/Disorders Respiratory History: Denies: Other Respiratory Problems/Disorders GI History: Denies: Other GI Disorders Musculoskeletal History: Reports: Hx Arthritis - BACK AND NECK, Hx Bursitis - LEFT FOOT Denies: Hx Osteoporosis, Other Musculoskeletal History Sensory History: Reports: Hx Cataracts - yuri, Hx Contacts or Glasses - GLASSES Denies: Hx Hearing Aid Opthamlomology History: Reports: Hx Cataracts - yuri, Hx Contacts or Glasses - GLASSES Neurological History: Denies: Hx Migraine, Other Neuro Impairments/Disorders Psychiatric History: Reports: Hx Anxiety - ON MEDICATION FOR - Surgical History Surgery Procedure, Year, and Place: COLONOSCOPY. 1ST CHILDBIRTH- ANESTHESIA. LEFT KNEE 2018 [facility] Hx Anesthesia Reactions: No Infectious Disease History: No Infectious Disease History: Reports: Hx Hepatitis - "A"-20 +YEARS AGO - no residual effects Denies: Traveled Outside the [place] in Last 30 Days - Family History Known Family History: Positive: Cardiac Disease - Social History Alcohol Use: Occasionally Alcohol Amount: 1-2 GLASSES OF WINE WEEKLY Hx Substance Use: No Substance Use Type: Reports: None Hx Tobacco Use: No Smoking Status (MU): Never Smoked Tobacco Have You Smoked in the Last Year: No Review of Systems Constitutional: Other - NEGATIVE - RECENT COLDS Negative: Fever Eyes: Other - NEGATIVE - VISUAL CHANGES Positive: Photophobia Negative: Chest Pain Negative: Shortness Of Breath, Cough Positive: Nausea. Negative: Abdominal Pain, Vomiting Positive: Headache All Other Systems Reviewed And Are Negative: Yes Physical Exam - Summary Physical Exam Summary: Appearance: Well-appearing, Well-nourished, lying in bed comfortably Skin: Warm, dry, no obvious rash Eyes: sclera anicteric, no conjunctival pallor ENT: mucous membranes moist, pharynx appears normal Neck: Supple, nontender Respiratory: Clear to auscultation, no signs of respiratory distress Cardiovascular: Normal S1, S2. No murmurs. Normal distal pulses in tibial and radial bilaterally. Abdomen: Soft, nontender, normal active bowel sounds present Musculoskeletal: Normal, Strength/ROM Intact Neurological: A&Ox3, awake and alert, mentation is normal, speech is fluent and appropriate, no meningismus Psychiatric: affect is normal, does not appear anxious or depressed Triage Information Reviewed: Yes Vital Signs On Initial Exam: Initial Vitals Temp Pulse Resp BP Pulse Ox 96.9 F 79 20 162/100 95 10/03/18 04:44 10/03/18 04:44 10/03/18 04:44 10/03/18 04:44 10/03/18 04:44 Vital Signs Reviewed: Yes Diagnostics - Vital Signs Vital Signs Temp Pulse Resp BP Pulse Ox 10/03/18 04:44 96.9 F 79 20 162/100 95 - Laboratory Lab Statement: Any lab studies that have been ordered have been reviewed, and results considered in the medical decision making process. Re-Evaluation - Re-Evaluation First Eval Re-Evaluation Time: 06:31 Change: Improved Comment: Patient reported relief in Sx after receiving medications. Headache Course/Dx - Course Course Of Treatment: Patient is a 78 y/o F presenting to ED with complaints of MAGDALENO. She states that she is "susceptible" to HAs but claims this is the worst MAGDALENO that she has experienced. MAGDALENO onset yesterday, 10/02/18, and had been "manageable " and intermittent throughout the day. Before going to bed, the patient took Execdrin PM and managed to sleep. This morning, at 0400, patient woke with severe MAGDALENO. She took two pills of Vanquish but experienced no relief in Sx. Nausea, photophobia are endorsed. Visual changes, chest pain, SOB, recent colds , abdominal pain, cough, fever and vomiting are denied. Physical exam unremarkable, no meningismus. During ED course, patient received fluids, Compazine 10 mg IV, toradol 10 mg IV, and Benadryl 25 mg IV. Patient reported relief in Sx after receiving medications. - Diagnoses Provider Diagnoses: Headache Discharge - Sign-Out/Discharge Documenting (check all that apply): Patient Departure - discharge Patient Received Moderate/Deep Sedation with Procedure: No - Discharge Plan Condition: Good Disposition: HOME Patient Education Materials: Migraine Headache (ED) Referrals: Jose Guzman MD [Primary Care Provider] - If Needed - Billing Disposition and Condition Condition: GOOD Disposition: Home - Attestation Statements Document Initiated by Puma: Yes Documenting Scribe: SARAH BUCKNER Provider For Whom Puma is Documenting (Include Credential): TANVIR LOWE MD Scribkatt Attestation: SARAH Boss, scribed for TANVIR LOWE MD on 10/04/18 at 1925. Scribe Documentation Reviewed: Yes Provider Attestation: The documentation as recorded by the SARAH bauman accurately reflects the service I personally performed and the decisions made by me, TANVIR LOWE MD Status of Scribe Document: Viewed
[2018-10-03] MEDS ORDERED: PROCHLORPERAZINE INJ 5 MG/ML 2 ML VIAL IV ONE (05:14)
[2018-10-03] MEDS ORDERED: Ketorolac INJ* 30 MG/ML 1 ML VIAL IV PUSH ONE (05:14)
[2018-10-03] MEDS ORDERED: NS 0.9% 1000 ML** 2,000 ML IV ONE (05:14)
[2018-10-03] MEDS ORDERED: diPHENhydraMINE IV* 50 MG/ML 1 ml VIAL (BENADRYL) IV ONE (05:15)
[2018-10-03 07:12] VITALS: BP 138/66
== END 2018-10-03 07:12 | disposition home or self-care (01) ==
LOC: ED 04:43
DX: R51 Headache (principal); M46.92 Unspecified inflammatory spondylopathy, cervical region; M46.90 Unspecified inflammatory spondylopathy, site unspecified; F41.9 Anxiety disorder, unspecified; Z79.899 Other long term (current) drug therapy
CPT/HCPCS: 96361; 96374; 96375; 99282; J0780; J1200; J1885

== ENCOUNTER 2021-07-29 08:23 | Observation (INO) ==
[~2021-07-29 08:23] MED LIST changes: -Acetaminophen TAB* 325 MG PO PRN; +Buffered Lidocaine 1% SYRIN 1 ml INTRADERM ONE; -Buffered Lidocaine 1% SYRIN* 1 ML/SYRINGE INTRADERM ONE; +Famotidine IV 10 MG/ML 2 ml VIAL (20 mg) IV ONE; +Lactated Ringers 1000 ml BAG 1,000 ML IV SCH
[2021-07-29] MEDS ORDERED: Propofol 10 MG/ML 20 ML BTL ONE (08:56)
[2021-07-29] MEDS ORDERED: Lidocaine 2% PF 5 ML VIAL ONE (08:57)
[2021-07-29] MEDS ORDERED: Ketamine HCL 50 mg/ml 10 ml VIAL (500 MG) ONE (08:57)
[2021-07-29] MEDS ORDERED: Midazolam 2 mg/2 ml VIAL 1 mg/ml 2 ml VIAL (2 mg) ONE (08:57)
[2021-07-29] MEDS ORDERED: ceFAZolin 2 GM in NS PREMIX 2 GM/100 ML BAG IVPB ONE (09:04)
[2021-07-29] MEDS ORDERED: Famotidine IV 10 MG/ML 2 ml VIAL (20 mg) ONE (09:04)
[2021-07-29] MEDS ORDERED: Midazolam 5 mg/5 ml VIAL 1 mg/ml 5 ml VIAL (5 mg) ONE (09:06)
[2021-07-29] MEDS ORDERED: Ropivacaine 5 MG/ML 20 ML VIAL 0.5% (100 MG) ONE (09:35)
[2021-07-29] MEDS ORDERED: Rocuronium 50 mg VIAL 10 mg/ml 5 ml VIAL (50 mg) ONE (10:03)
[2021-07-29] MEDS ORDERED: fentaNYL 250 mcg/5 ml 50 MCG/ML 5 ml VIAL (250 MCG) ONE (10:04)
[2021-07-29] MEDS ORDERED: Dexamethasone IV 4 MG/ML VIAL 1 ml VIAL ONE (10:36)
[2021-07-29] MEDS ORDERED: Ondansetron 4 mg VIAL 2 MG/ML 2 ml VIAL ONE (10:36)
[2021-07-29] MEDS ORDERED: HYDROmorphone 0.5 MG/0.5 ML SYRINGE ONE (11:11)
[2021-07-29] MEDS ORDERED: EPHEDrine (Pressors) 50 MG/ML VIAL ONE ×2 (11:21→11:22)
[2021-07-29] MEDS ORDERED: Ondansetron 4 mg VIAL 2 MG/ML 2 ml VIAL IV PRN ×2 (11:45→12:45)
[2021-07-29] MEDS ORDERED: diPHENhydraMINE IV 50 MG/ML 1 ml VIAL (BENADRYL) IV PRN (11:45)
[2021-07-29] MEDS ORDERED: diPHENhydraMINE 25 mg TAB PO PRN (11:45)
[2021-07-29] MEDS ORDERED: Ondansetron ODT 4 mg TAB 4 MG TAB PO PRN (11:45)
[2021-07-29] MEDS ORDERED: Lactulose 30 ml UDC PO PRN (11:45)
[2021-07-29] MEDS ORDERED: Magnesium Hydroxide LIQ 30 ML UDC PO PRN (11:45)
[2021-07-29] MEDS ORDERED: fentaNYL 100 mcg/2 ml 50 MCG/ML VIAL IV PRN (12:45)
[2021-07-29] MEDS ORDERED: Naloxone 0.4 mg VIAL 0.4 mg/ml 1 ml VIAL IV PRN (12:45)
[2021-07-29] MEDS: Lactated Ringers 1000 ml BAG 1,000 ML IV SCH (15:32)
[2021-07-29] MEDS: ceFAZolin 1 GM ADVAN 1 GM in NS 0.9% 50 ML 50 ML IVPB SCH (18:46)
[2021-07-29] MEDS: Magnesium Hydroxide LIQ 30 ML UDC PO SCH (20:45)
[2021-07-30] MEDS: ceFAZolin 1 GM ADVAN 1 GM in NS 0.9% 50 ML 50 ML IVPB SCH ×2 (02:32→09:56)
[2021-07-30] MEDS: Lactated Ringers 1000 ml BAG 1,000 ML IV SCH (02:32)
[2021-07-30 04:13] VITALS: BP 122/59
[2021-07-30 06:10] LABS: Hematocrit 34 % (35-47); Hemoglobin 11.1 g/dL (12.0-16.0); Mean Platelet Volume 8.6 fL (7.4-10.4); Platelet Count 213 10^3/uL (150-450)
[2021-07-30 06:44] LABS: Calcium 8.5 mg/dL (8.6-10.3); Potassium 4.4 mmol/L (3.5-5.0); eGFR CKD-EPI 77.2 (>60)
[2021-07-30] MEDS ORDERED: Vitamin THERAPEUTIC TAB PO SCH (09:00)
[2021-07-30] MEDS: Magnesium Hydroxide LIQ 30 ML UDC PO SCH (10:04)
== END 2021-07-30 11:45 | disposition home or self-care (01) ==
LOC: INTOOBSV 08:23 → AA 08:23 → SSU 15:31
PROVIDERS: ADMIT Orthopaedic Surgery Adult Reconstructive Orthopaedic Surgery; ATTEND Orthopaedic Surgery Adult Reconstructive Orthopaedic Surgery